=== PATIENT | male | born 1945 | race Caucasian/White ===

== ENCOUNTER 2016-08-20 13:23 | Emergency (ER) | payer MEDICARE, OTHER ==
[~2016-08-20] VITALS: Ht 170.2 cm; Wt 80.0 kg
[2016-08-20] MEDS ORDERED: BACITRACIN OINTMENT 0.9 GM PACKET TOP ONE (13:45)
[2016-08-20] MEDS ORDERED: TETANUS, DIPTHERIA, PERTUSSIS (ADACELL) VACCINE 0.5 ML VIAL IM ONE (13:45)
[2016-08-20] MEDS ORDERED: LIDOCAINE 1% (XYLOCAINE) 20 ML VIAL INJ ONE (13:45)
--- NOTE | 2016-08-20 14:18 | NUR ---
PT BECOMES PALE/DIAPHORETIC & BP DROPS TO 90/41. DR HILLMAN AT BEDSIDE STITCHING PT. THIS RN PLACES PT IN MILD [place]G POS & WIPES FACE W/COLD WET CLOTH. AFTER A FEW MIN PT BEGINS TO FEEL BETTER & BP COMES BACK TO PREVIOUS. CL
--- NOTE | 2016-08-20 15:32 | NUR ---
PT STATES LEG IS NUMB AT THIS TIME. CL
[2016-08-20 21:44] VITALS: BP 152/63
== END 2016-08-20 14:56 | disposition home or self-care (01) ==
LOC: ED 13:25
DX: S81.811A Laceration without foreign body, right lower leg, initial encounter (principal); W17.2XXA Fall into hole, initial encounter; Y92.414 Local residential or business street as the place of occurrence of the external cause
CPT/HCPCS: 12032; 90471; 90715; 99283; A9270; 99282